=== PATIENT | male | born 2000 | race Caucasian/White ===

== ENCOUNTER 2024-12-23 08:58 | Emergency (ER) | payer BC, SELFPAY ==
--- NOTE | ~2024-12-23 | XR_ITS ---
AP and lateral views of the sacrum/coccyx CLINICAL HISTORY: Tailbone injury FINDINGS: No fracture or dislocation seen. Osseous alignment appears anatomic. Visualized hip joints are intact. SI joints are intact. Soft tissues are unremarkable. IMPRESSION: Unremarkable exam. Reviewed, dictated and finalized at [facility]. IMPRESSION: Unremarkable exam.
--- NOTE | 2024-12-23 09:05 | ED.BACK ---
HPI - Back Pain/Injury General Chief Complaint: Back Pain/Injury Stated Complaint: Fall Injury, lower back pain Time Seen by Provider: 12/23/24 09:06 Source: patient Mode of arrival: ambulatory Limitations: no limitations History of Present Illness HPI Narrative: Sebastián is a 24-year-old male patient presenting to the clinic today with complaints of tailbone pain early this morning. States last night he fell on a corner of a stair and injured his tailbone. Rates his pain 2/10 when standing but it increases to 7-8 out of 10 when moving. Has a lot of pain when laying down and sitting. Denies any blood in his urine or any difficulty urinating. Has not had a bowel movement since he injured the tailbone. Related Data Allergies Allergy/AdvReac Type Severity Reaction Status Date / Time cefdinir Allergy Unknown Vomiting Verified 12/23/24 09:12 Review of Systems Review of Systems: Pertinent positives per HPI. Patient denies any fever, chills, rash, headache, visual changes, dizziness, cough, shortness of breath, chest pain, palpitations, nausea, vomiting, diarrhea, constipation, abdominal pain, or any urinary issues. FOR[facility]LY [facility], [facility] Family History Family History Mother Family history of thyroid disease Family history of lupus erythematosus Grandparent Diabetes mellitus Hypertension Family history of cardiovascular disease Family history of congestive heart failure Father Hypertension Social History Social History Smoking status: Light tobacco smoker Second hand tobacco smoke exposure: No Alcohol intake: never Comments At the time of my signature, I reviewed and agree with the nursing past medical, surgical, social, and family history. There is no relevant family history pertinent to the patient complaint. Exam Narrative: General: Well-developed, well nourished, in no apparent distress Head: Normocephalic, atraumatic. Cardio: Regular rate and rhythm, s1 and s2 normal, no murmur appreciated. Resp: Clear to auscultation bilaterally, no rhonchi, rales, wheezing or rubs. Musculoskeletal: No deformity, no bruising or swelling noted to the tailbone,tender to palpation over the tailbone, grossly normal range of motion, muscle strength strong and equal in BLE. SLT negative, patellar reflexes 2/4 bilaterally, negative foot drop, normal gait and station Course Course Emergency Course: Portions of this record may have been created with voice recognition software. Level of Care: Express Care Visit Vital Signs Vital signs: Vital Signs Pulse Rate 93 12/23/24 09:13 Respiratory Rate 16 12/23/24 09:13 Blood Pressure 149/91 H 12/23/24 09:13 Pulse Oximetry 99 12/23/24 09:13 Oxygen Delivery Room Air 12/23/24 09:13 Pulse Rate 93 12/23/24 09:13 Respiratory Rate 16 12/23/24 09:13 Blood Pressure 149/91 H 12/23/24 09:13 Pulse Oximetry 99 12/23/24 09:13 Oxygen Delivery Room Air 12/23/24 09:13 Vital signs reviewed MDM - Back Pain/Injury MDM Narrative Medical decision making narrative: At the time of visit patient is resting comfortably on the exam table. Patient appears to be nontoxic. Diagnostics: X-ray of the sacrum/coccyx was completed. X-rays negative for any sign of fracture or or malalignment. Plan: I suspect patient has a coccyx contusion. Prescription for naproxen was sent to the pharmacy. Supportive measures were discussed with the patient and they voiced understanding discharge instructions and agrees to treatment plan. Return precautions reviewed Differential Diagnosis Differential diagnosis: Likely lumbar radiculopathy, sciatica and strain of lumbar region (Coccyx fracture, coccyx bruise, soft tissue injury) Imaging Data Radiologist's impression: ITS Impressions Sacrum and Coccyx X-Ray 12/23/24 09:36 IMPRESSION: Unremarkable exam. Discharge Plan Discharge Clinical Impression: Coccygeal contusion Qualifiers: Encounter type: initial encounter Qualified Code(s): S30.0XXA - Contusion of lower back and pelvis, initial encounter Patient Disposition: Home Condition: Stable Instructions: Antibiotic Form, Coccyx Injury (ED), Contusion in Adults (ED) Additional Instructions: X-rays negative for any sign of fracture or malalignment of the sacrum or the coccyx. Increase fluids and stay well hydrated May take stool softener daily as discussed Take naproxen as prescribed-may take Tylenol additionally as needed for pain May apply ice to the affected area 20 minutes at a time 20 minutes on/20 minutes off for the next 24-48 hours Recommend purchasing a donut cushion so you can set more comfortably Follow-up with your primary care doctor in 7-10 days if symptoms persist or sooner if they worsen Patient Language: Sami Prescriptions: New naproxen 500 mg tablet 500 mg PO BID PRN (Reason: pain) 7 Days Qty: 14 0RF Follow-up/Referrals: UNKNOWN,DOCTOR [Primary Care Provider] - Time of Disposition: 09:51 Quality NIHSS Nursing Documentation ED NIHSS nursing documentation: reviewed/agree
[2024-12-23 09:13] VITALS: BP 149/91; PULSE 93; RESP 16; O2SAT 99
== END 2024-12-23 10:00 | disposition home or self-care (01) ==
PROVIDERS: Emergency Provider Nurse Practitioner Family
DX: S30.0XXA Contusion of lower back and pelvis, initial encounter (principal); W10.9XXA Fall (on) (from) unspecified stairs and steps, initial encounter; F17.200 Nicotine dependence, unspecified, uncomplicated
CPT/HCPCS: 72220; 99203; G0463

== ENCOUNTER 2025-01-07 23:06 | Emergency (ER) | payer BC, SELFPAY ==
--- NOTE | ~2025-01-07 | XR_ITS ---
EXAMINATION: XR chest 2V Exam Date/Time: 01/07/2025 23:24 CDT HISTORY: chest pain LEFT SIDE Comparison: None. RESULT: Lines, tubes, and devices: None. Lungs and pleura: Clear. Cardiomediastinal silhouette: Normal. Other: No acute osseous or upper abdominal finding. IMPRESSION: No acute cardiopulmonary process. Reviewed, dictated and finalized at location [facility].
--- OUTSIDE RECORDS SUMMARY | 2025-01-07 23:08 | XMS_ITS | Encounter Summary ---
Author Organization [facility] Address [address] Attn: Epic Prelude ADT RENITA CABEZAS [id number] Care Team Providers Care Solar Project Manager Name Role Phone Arvin Call MD Primary Care Provide r Unavailable Encounter Details Date Type Department Care Team (Late st Contact Info) Description 2000 Inpatient Historical Silvia Santana Arvin Call MD NO ADDRESS ON FILE Single liveborn, born in hospital, delivered without mention of delivery (Primary Dx) Social History Tobacco Use Types Packs/Day Years Used Date Smoking Tobacco: Never Assessed Sex and Gender Information Value Date Recorded Sex Assigned at Not on file 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
--- OUTSIDE RECORDS SUMMARY | 2025-01-07 23:08 | XMS_ITS | Clinical Summary ---
Author Organization [facility] [address] Address [address] [place] [id number] Care Team Providers Care Beef Splitter Name Role Phone Elysia Byers MD Primary Care Provider [phone] Allergies Active Allergy Reactions Criticality Noted Date Comments Cefdinir Vomiting Low 09/26/2020 Medications cetirizine-pseu doephedrine ER (ZyrTEC-D) 5-120 mg per 12 hr tablet Take 1 tablet by mouth 2 (two) times a day Active SUMAtriptan (IMITREX) 100 mg tabletIndicatio ns:Migraine Take 1 tablet (100 mg total) by mouth once as needed for migraine Take 1 tablet (100 mg total) by mouth once as needed for migraine (headache) for up to 1 dose May repeat one time after 2 hours if needed. 9 tablet 3 12/08/2021 Active Active Problems Problem Noted Date Diagnosed Date Preventative health care 09/26/2020 Assessment & Plan (12/11/2021 2:49 PM CDT): utd on vaccinations aside from gardasil- recommended Due for labwork, ordered rtc 1 year for annual Assessment & Plan (09/26/2020 11:20 AM CDT): Will work on varicella vax, tdap, hpv info Advised he work on diet and exercise Fasting labwork at earliest convenience Migraine Immunizations Immunization Administration Dates Next Due Influenza, Unspecified 04/10/2020 Tdap 01/15/2021 Surgical History Surgery Date Site/Laterality Comments WISDOM TOOTH EXTRACTION Medical History Medical History Date Comments Migraine Family History Medical History Relation Name Comments Hypertension Father Lupus Mother Relation Name Status Comments Father Alive Mother Alive Social History Tobacco Use Types Packs/Day Years Used Date Smoking Tobacco: Some Days Cigars Vaping Smokeless Tobacco: Never AUDIT-C Answer Date Recorded Q1: How often do you have a drink containing alc ohol? 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 Gender Identity Not on file Sexual Orientation Not on file Obstetrics History Last Filed Vital Signs Vital Sign Reading Time Taken Comments Blood Pressure 124/82 12/08/2021 1:05 PM CDT Pulse 95 12/08/2021 1:05 PM CDT Temperature 36.7 C (98.1 F) 12/08/2021 1:05 PM CDT Respiratory Rate - - Oxygen Saturation 97% 12/08/2021 1:05 PM CDT Inhaled Oxygen Concentration - - Weight 101.6 kg (224 lb) 12/08/2021 1:05 PM CDT Height 186.7 cm (6' 1.5) 12/08/2021 1:05 PM CDT Body Mass Index 29.15 12/08/2021 1:05 PM CDT Plan of Treatment Not on file Insurance Codenvy OOS Codenvy OOS Care Teams Beef Splitter Relationship Specialty Start Date End Date Elysia Byers MD [address] [place] [id number] PCP - General Internal Medicine 09/09/20
--- OUTSIDE RECORDS SUMMARY | 2025-01-07 23:08 | XMS_ITS | Referral Summary ---
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
--- OUTSIDE RECORDS SUMMARY | 2025-01-07 23:08 | XMS_ITS | Encounter Summary ---
Author Organization [facility] Address 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
--- OUTSIDE RECORDS SUMMARY | 2025-01-07 23:08 | XMS_ITS | Clinical Summary ---
Author Organization [facility] Address [address] [place] [address] Care Team Providers Care Metalizing Machine Operator Automatic Name Role Phone Unavailable Primary Care Provider Unavailabl e Allergies Active Allergy Reactions Criticality Noted Date Comments Cefdinir Nausea and Vomiting High 01/03/2015 Medications cetirizine (ZyrTEC) 10 mg tablet Take 10 mg by mouth daily. Active acetaminophen (TYLENOL) 325 mg tablet Take 325 mg by mouth every 4 hours as needed. Active ibuprofen (MOTRIN) 200 mg tablet Take 200 mg by mouth every 6 hours as needed for Pain, Mild. Active Active Problems No known active problems Immunizations Immunization Administration Dates Next Due (ADACEL/BOOSTRIX)(10 YR UP) TDAP VACCINE, 0.5ML, IM 12/17/2011 (HAVRIX/VAQTA)(12 MO-18 YRS) HEPATITIS A VACCINE 0.5 ML PED/ADOL 2 DOSE, IM 02/13/2016,01/03/2015 07/05/2015 (INFANRIX)(6 WKS-6 YRS) DIPT HERIA, TETANUS TOXOIDS, AND ACCELLULAR PERTUSSIS VACCINE (DTAP), 0.5 ML IM 05/12/2005,10/26/2001,2000,08/12,2000 (IPOL)(6 WKS AND UP) POLIOVI ANDREW VACCINE, INACTIVATED (IPV), 3 DOSE, SUBCUT OR IM 05/12/2005,10/26/2001,2000,05/13 (M-M-R II/PRIORIX)(12 MO UP) MEASLES, MUMPS AND RUBELLA VIRUS VACCINE, 0.5 ML IM/SUBCUT 05/12/2005,08/03/2001 (TRUMENBA)(10-25 YR) MENINGO COCCAL RECOMBIANT LIPOPROTEIN VACCINE, SEROGROUP B MENB-FHBP, 2-3 DOSE, IM 03/09/2018 (VARIVAX)(12 MOS UP)VARICELL A VIRUS VACCINE (PF) 0.5 ML, SUB CUT 12/17/2011,05/02/2002 HIB, Unspecified Formulation 08/03/2001, 2000,2000,07/11 Hepatitis B Vaccine 02/02/2001,2000,1999 Meningococcal A Conjugate Vaccine IM 03/09/2018, 01/03/2015 PREVNAR (PCV13) pneumococcal 13-valent conjugate Vaccine 10/26/2001,02/02/2001,2000 Family History Medical History Relation Name Comments Healthy Father Other Mother Relation Name Status Comments Father Mother Social History Tobacco Use Types Packs/Day Years Used Date Smoking Tobacco: Never Alcohol Use Standard Drinks/Week Comments No 0 (1 standard drink = 0.6 oz pur e alcohol) Sex and Gender Information Value Date Recorded Sex Assigned at Not on file 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 Gender Identity Not on file Sexual Orientation Not on file Last Filed Vital Signs Vital Sign Reading Time Taken Comments Blood Pressure 110/74 03/09/2018 3:20 PM CDT Pulse 72 02/15/2017 11:01 AM CDT Temperature 36.8 C (98.2 F) 07/19/2016 11:00 AM DWARF TREE GROWER Respiratory Rate - - Oxygen Saturation 99% 10/11/2016 11:02 AM CDT Inhaled Oxygen Concentration - - Weight 79.6 kg (175 lb 6.4 oz) 03/09/2018 3:20 P M CDT Height 184.2 cm (6' 0.52) 03/09/2018 3:20 PM CD T Body Mass Index 23.45 03/09/2018 3:20 PM CDT Plan of Treatment Health Maintenance Due Date Last Done Comments HPV VACCINES (1 - Male 3-dos e series) 2015 DTAP/TDAP/TD VACCINES (7 - T d or Tdap) 12/16/2021 12/17/2011, 05/12/2005, 10/26/2001, Additional history exists INFLUENZA VACCINE (#1) 2024 HEPATITIS B VACCINES Completed 02/02/2001, 2000, 2000
--- NOTE | 2025-01-07 23:18 | ECG_ITS ---
Test Date: 2025-01-07 23:21:45 Measurements Intervals [place] Rate: 103 P: 44 AR: 156 QRS: 42 QRSD: 88 T: -5 QT: 315 QTc: 414 Interpretive Statements SINUS TACHYCARDIA NONSPECIFIC T-WAVE ABNORMALITY ABNORMAL RHYTHM ECG No previous ECG available for comparison Electronically Signed On 01-08-2025 15:34:58 CDT by Kimani Monroe
[2025-01-07 23:20] VITALS: BP 184/126; PULSE 102; RESP 18; TEMP 36.5; O2SAT 99
[2025-01-08 00:30] VITALS: BP 152/95; PULSE 94; RESP 16; O2SAT 99
[2025-01-08 01:21] LABS: Hematocrit 47.3 % (42.0-52.0); Hemoglobin 16.0 g/dL (14.0-18.0); Immature Granulocyte Percent A 0.5 % (0-0.5); Lymphocytes Absolute Auto 2.18 K/mm3 (0.9-3.2); Mean Corpuscular HGB Conc 33.8 g/dl (32-36); Mean Corpuscular Hemoglobin 30.8 pg (26-34); Mean Corpuscular Volume 91.1 fl (80-100); Nucleated Red Blood Cells Absolute Auto 0.000 K/mm3 (0.0-0.012); Nucleated Red Blood Cells Perc 0.0 % (0.0-0.2); Platelet Count Result 252 k/mm3 (150-375); Red Blood Count 5.19 M/mm3 (4.6-6.20); White Blood Count 9.8 K/mm3 (4.5-10.0)
[2025-01-08 01:26] LABS: Alanine Aminotransferase 58 U/L (6-50); Albumin Level 4.7 g/dL (3.5-5.1); Alkaline Phosphatase 54 U/L (38-126); Anion Gap 9 mmol/L (4-12); Aspartate Amino Transferase 56 U/L (17-59); Bilirubin,Total 0.5 mg/dL (0.2-1.3); Blood Urea Nitrogen 15 mg/dL (9-20); Calcium 9.6 mg/dL (8.4-10.2); Carbon Dioxide 28 mmol/L (22-30); Chloride 103 mmol/L (98-107); Estimated CRCL calculation 159 ml/min; Estimated Glomerular Filt Rate > 60; Glucose 110 mg/dL (65-110); Lipase 73 U/L (23-300); Potassium 3.7 mmol/L (3.4-5.0); Sodium 140 mmol/L (137-145); Total Protein 8.1 g/dL (6.3-8.2)
[2025-01-08 01:32] VITALS: O2SAT 99
[2025-01-08 01:38] LABS: INR 1.1; Partial Thromboplastin Time 30.8 Seconds (22.3-36.8); Prothrombin Time 14.0 Seconds (11.1-14.7); Troponin I < 0.012 ng/mL (0.000-0.034)
--- NOTE | 2025-01-08 02:30 | ED_ITS ---
HPI - Chest Pain General Chief Complaint: Chest Pain Stated Complaint: Left chest pain Time Seen by Provider: 01/08/25 02:01 Source: patient and family Mode of arrival: ambulatory Limitations: no limitations History of Present Illness HPI narrative: Patient presents with report of acute onset left-sided chest pain. He states he was taking a deep breath when he experienced sharp pain. That pain went away but then he seemed to have pain that radiated to his left shoulder. He took ibuprofen and the pain was mostly gone after this. However, he had previously taken an EMT class and thought he should get it checked out. Does not have a primary care physician. Does not have a diagnosis of hypertension but does state that at multiple clinic visits his blood pressure has been elevated and this has been ever since he experienced a frontal sinus fracture. He did have some shortness of breath earlier but not currently. Denies any fevers, chills, cough, heavy lifting. Cardiac risk factors HTN: No diagnosis yet HLD: No DM: No Obese:Yes Smoker: Quit vaping >3 mos ago (does still use Zin pouches) Personal history MN/TIA/CVA: No Fam Hx MN in first degree relative <65yo: No Related Data Allergies Allergy/AdvReac Type Severity Reaction Status Date / Time cefdinir Allergy Unknown Vomiting Verified 01/08/25 00:31 [facility] Past Medical History Medical History (Updated 01/09/25 @ 09:03 by Beth Wolff MD) Frontal sinus fracture Family History Family History Mother Family history of thyroid disease Family history of lupus erythematosus Grandparent Diabetes mellitus Hypertension Family history of cardiovascular disease Family history of congestive heart failure Father Hypertension Social History Social History Smokeless tobacco user: chewing tobacco Second hand tobacco smoke exposure: No Additional smoking assessment comments: Previously vaped (quit >3 mos ago); now Zin pouches Alcohol intake: never Additional occupation/education comments: 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 HEAD: Normocephalic, atraumatic. EYES: Non injected, non icteric ENT: Nares clear, no rhinorrhea or epistaxis. Gross auditory acuity intact. NECK: Supple. No meningismus. CHEST: Speaking in full sentences. No respiratory distress. Lungs clear to auscultation bilaterally without wheezes crackles, areas of focal consolidation, or absent breath sounds. Pain is not reproducible on palpation HEART: Regular rate and rhythm. . ABDOMEN: Soft, nondistended. EXTREMITIES: Normal range of motion. No lower extremity edema. SKIN: Warm, dry, no rash. NEURO: No focal deficits. Alert and oriented. Answering questions. Following commands. Normal speech without aphasia or dysarthria. PSYCH: Normal mood and affect. Course Vital Signs Vital signs: Vital Signs Temperature 97.7 F 01/07/25 23:20 Pulse Rate 102 H 01/07/25 23:20 Respiratory Rate 18 01/07/25 23:20 Blood Pressure 184/126 H 01/07/25 23:20 Pulse Oximetry 99 01/07/25 23:20 Oxygen Delivery Room Air 01/07/25 23:20 Temperature 97.7 F 01/07/25 23:20 Pulse Rate 76 01/08/25 05:23 Respiratory Rate 15 01/08/25 05:23 Blood Pressure 152/82 H 01/08/25 05:23 Pulse Oximetry 95 01/08/25 05:23 Oxygen Delivery Room Air 01/08/25 01:32 MDM - Chest Pain MDM Narrative Medical decision making narrative: Pleasant 24 year old male presents with concern for left-sided chest pain that he developed after he took a deep breath and experienced a sharp pain in this area. The pain went away but then seemed to radiate/settle in his left shoulder. It was nearly gone after taking ibuprofen but he still decided to come to the emergency department to be checked out. In the emergency department he is afebrile with vital signs notable for tachycardia and hypertension. Mild ALT elevation. D-dimer normal. Will not pursue further w/u for PE. HEART SCORE History 2 highly suspicious 1 moderately suspicious 0 slightly suspicious History score [address] depression/elevation not due to LBBB, LVH, or digoxin [address] depression but LBBB, LVH, nonspecific repolarization changes 0 normal ECG score 0 Age 2 >/= 65 1 45-64 0 <45 Age score 0 Risk factors (HTN, hypercholesterolemia, DM, obesity with BMI >30, current smoker or cessation </=3mo), positive fam hx with parent or sibling with CVD before age 65, atherosclerotic disease (prior MN, PCI/CABG, CVA/TIA, or peripheral arterial disease) 2 >/= 3 risk factors or history of atherosclerotic dz 1 - 1-2 risk factors 0 no known risk factors Risk factor score 1 Initial Troponin 2 >3 times normal limit 1 1-3 times normal limit 0 less than or equal to normal limit Troponin score 0 Total HEART Score 1 Repeat troponin normal. Given that patient states that he has had recurrent elevated blood pressure readings at various times when it is been checked and including multiple times while in the emergency department, shared decision making was performed in regards to initiating antihypertensive medication. Patient is amenable. Advised follow-up with primary care physician and provided contact information for 1. Also provided prescriptions for analgesia OTC meds. Stable for discharge. Differential Diagnosis Differential diagnosis: Likely pneumothorax (including considering tension/spontenaoue), stable angina, unstable angina pectoris, atypical chest pain, st elevation myocardial infarction, costochondritis, chest pain and biliary colic Lab Data Attestation: I reviewed the patient's lab results. 01/08/25 01:11 01/08/25 01:11 Labs: Lab Results 01/08/25 01/08/25 Range/Units 01:11 04:17 WBC 9.8 (4.5-10.0) K/mm3 RBC 5.19 (4.6-6.20) M/mm3 Hgb 16.0 (14.0-18.0) g/dL Hct 47.3 (42.0-52.0) % MCV 91.1 (80-100) fl MCH 30.8 (26-34) pg MCHC 33.8 (32-36) g/dl RDW 12.0 (11.5-14.5) % Plt Count 252 (150-375) k/mm3 MPV 10.5 H (7.4-10.4) fl Immature Gran % (Auto) 0.5 (0-0.5) % Neut % (Auto) 66.3 (45.5-73.1) % Lymph % (Auto) 22.2 (18.3-44.2) % Brooks % (Auto) 8.5 (2.6-8.5) % Eos % (Auto) 1.8 (0-4.4) % Baso % (Auto) 0.7 (0.2-1.2) % Lymph # (Auto) 2.18 (0.9-3.2) K/mm3 Brooks # (Auto) 0.8 H (0.1-0.6) K/mm3 Eos # (Auto) 0.2 (0-0.3) K/mm3 Baso # (Auto) 0.1 (0.0-0.1) K/mm3 Abs Immat Gran (auto) 0.05 H (0.00-0.031) K/mm3 Absolute Neuts (auto) 6.5 (1.3-6.7) K/mm3 Absolute Nucleated RBC 0.000 (0.0-0.012) K/mm3 Nucleated RBC % 0.0 (0.0-0.2) % PT 14.0 (11.1-14.7) Seconds INR 1.1 APTT 30.8 (22.3-36.8) Seconds D-Dimer < 0.27 (<0.48) ug/mL Sodium 140 (137-145) mmol/L Potassium 3.7 (3.4-5.0) mmol/L Chloride 103 (98-107) mmol/L Carbon Dioxide 28 (22-30) mmol/L Anion Gap 9 (4-12) mmol/L BUN 15 (9-20) mg/dL Creatinine 0.81 (0.7-1.3) mg/dL Estim Creat Clear Calc 159 ml/min Estimated GFR > 60 (59 - ) Glucose 110 (65-110) mg/dL Calcium 9.6 (8.4-10.2) mg/dL Total Bilirubin 0.5 (0.2-1.3) mg/dL AST 56 (17-59) U/L ALT 58 H (6-50) U/L Alkaline Phosphatase 54 (38-126) U/L Troponin I < 0.012 0.014 (0.000-0.034) ng/mL Total Protein 8.1 (6.3-8.2) g/dL Albumin 4.7 (3.5-5.1) g/dL Lipase 73 (23-300) U/L Imaging Data Radiologist's impression: IMPRESSION: No acute cardiopulmonary process. ECG Data EKG #1: Attestation: I personally reviewed and interpreted this ECG as follows: ECG completion date: 01/07/25 ECG completion time: 23:21 Interpretation: Sinus tachycardia at a rate of 103 beats per minute. HI interval 156. QRS 88. QT/QTC 315/375. Good R-wave progression across the precordial leads. T-wave inversion in 3 and AVF. Upright in contiguous inferior lead 2. No other T-wave inversions. EKG #2: Attestation: I personally reviewed and interpreted this ECG as follows: ECG completion date: 01/08/25 ECG completion time: 04:12 Interpretation: Sinus rhythm at a rate of 72 beats per minute. There is R to R variation consistent with sinus arrhythmia and usually due to respiratory variation and otherwise benign finding. HI interval 144. QRS 91. QT/QTC 361/386. Good R- wave progression across the precordial leads. T-wave inversion in III. Discharge Plan Discharge Clinical Impression: Elevated ALT measurement, Chest pain, Elevated BP without diagnosis of hypertension Patient Disposition: Home Condition: Stable Instructions: Antibiotic Form, Chest Pain (ED), Hypertension (ED), Noncardiac Chest Pain (ED) Additional Instructions: As we discussed, the cause of your pain is unclear but not felt to be cardiac given your workup which included EKG (x2), troponin/cardiac enzymes (x2), chest xray, etc. It is recommended that you follow-up with a primary care physician, for this as well as your high blood pressure. Because you stated you have had multiple elevated readings at other healthcare appointments, will start you on a blood pressure medication given the concern for hypertension. Name/referrals for both a primary care physician and clinical services director are listed below. Return to the emergency department with any new or worsening symptoms Acetaminophen/Tylenol (maximum 4000 mg per day) is safe to take with NSAIDs (ibuprofen/Motrin) for pain relief. Patient Language: Czech Prescriptions: New acetaminophen 500 mg capsule 1,000 mg PO Q6H PRN (Reason: pain) Qty: 30 0RF ibuprofen 600 mg tablet 600 mg PO TID PRN (Reason: pain) Qty: 30 0RF hydrochlorothiazide 12.5 mg tablet 12.5 mg PO DAILY 30 Days Qty: 30 0RF No Action naproxen 500 mg tablet 500 mg PO BID PRN (Reason: pain) 7 Days Qty: 14 0RF Follow-up/Referrals: Juan Hart MD [Physician] - (cardiology) Motwani,Reinaldo K., MD [Physician] - (primary care) UNKNOWN,DOCTOR [Primary Care Provider] - Stand Alone Forms: Work/School Release IP Time of Disposition: 05:11
--- OUTSIDE RECORDS SUMMARY | 2025-01-08 02:39 | XMS_ITS | Clinical Summary ---
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
--- OUTSIDE RECORDS SUMMARY | 2025-01-08 02:39 | XMS_ITS | Encounter Summary ---
Author Organization [facility] Address 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
--- OUTSIDE RECORDS SUMMARY | 2025-01-08 02:39 | XMS_ITS | Referral Summary ---
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
--- OUTSIDE RECORDS SUMMARY | 2025-01-08 02:39 | XMS_ITS | Clinical Summary ---
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
--- OUTSIDE RECORDS SUMMARY | 2025-01-08 02:39 | XMS_ITS | Encounter Summary ---
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
[2025-01-08 03:09] VITALS: BP 154/99; PULSE 81; RESP 19; O2SAT 97
--- NOTE | 2025-01-08 04:11 | ECG_ITS ---
Test Date: 2025-01-08 04:12:20 Measurements Intervals [place] Rate: 72 P: 42 GA: 144 QRS: 34 QRSD: 91 T: -1 QT: 361 QTc: 397 Interpretive Statements SINUS RHYTHM WITH SINUS ARRHYTHMIA Compared to ECG 01/07/2025 23:21:45 Sinus tachycardia no longer present T-wave abnormality no longer present Electronically Signed On 01-08-2025 17:59:01 CDT by Kimani Monroe
[2025-01-08 04:58] LABS: Troponin I 0.014 ng/mL (0.000-0.034)
[2025-01-08 05:23] VITALS: BP 152/82; PULSE 76; RESP 15; O2SAT 95
== END 2025-01-08 05:24 | disposition home or self-care (01) ==
PROVIDERS: Student in an Organized Health Care Education/Training Program; Emergency Provider Student in an Organized Health Care Education/Training Program
DX: R74.01 Elevation of levels of liver transaminase levels (principal); R07.9 Chest pain, unspecified; R03.0 Elevated blood-pressure reading, without diagnosis of hypertension
CPT/HCPCS: 36415; 71046; 80053; 83690; 84484; 85025; 85380; 85610; 85730; 93005; 99284

== ENCOUNTER 2025-07-05 09:30 | Emergency (ER) | payer BC, SELFPAY ==
[2025-07-05 09:41] VITALS: BP 145/90; PULSE 89; RESP 16; TEMP 36.4; O2SAT 99
--- NOTE | 2025-07-05 10:30 | ED_ITS ---
HPI - URI/Sore Throat General Chief Complaint: Upper Respiratory Infection Stated Complaint: Sore throat Time Seen by Provider: 07/05/25 10:30 Source: patient, RN notes reviewed and old records reviewed Mode of arrival: ambulatory Limitations: no limitations History of Present Illness HPI Narrative: 25-year-old male presents to the [facility] with a sore throat x1 day. No treatment prior to arrival Related Data Allergies Allergy/AdvReac Type Severity Reaction Status Date / Time cefdinir Allergy Unknown Vomiting Verified 01/08/25 00:31 Review of Systems Review of Systems: All systems reviewed & are unremarkable except as noted in HPI and below Constitutional: Constitutional: Reports no additional constitutional complaints ENT: Reports as per HPI and Reports sore throat Cardiovascular: Cardiovascular: Reports no additional cardiovascular complaints, Denies chest pain and Denies dyspnea Respiratory: Respiratory: Reports no additional respiratory complaints, Denies chest congestion, Denies cough and Denies dyspnea Musculoskeletal: Musculoskeletal: Reports no additional musculoskeletal complaints Integumentary/Breasts: Skin/Breast: Reports system reviewed and no additional complaints, except as docu PMFSH Past Medical History Medical History Frontal sinus fracture Family History Family History Mother Family history of thyroid disease Family history of lupus erythematosus Grandparent Diabetes mellitus Hypertension Family history of cardiovascular disease Family history of congestive heart failure Father Hypertension Social History Social History Smokeless tobacco user: chewing tobacco Second hand tobacco smoke exposure: No Additional smoking assessment comments: Previously vaped (quit >3 mos ago); now Zin pouches Alcohol intake: never Additional occupation/education comments: 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 There is no relevant family history pertinent to the patient complaint. Exam Const: General: cooperative, healthy appearing, comfortable, no acute distress, well developed, alert and well nourished Nutritional Appearance: well nourished Orientation/consciousness: patient oriented x3 Limitations: no limitations HENMT: Head: normal to inspection Ears: hearing grossly normal bilaterally, external ears normal, TM's normal bilaterally, EAC's normal, mastoids normal and no periauricular adenopathy Mouth: Yes Normal oral and palatal mucosa present, Yes lip normal, Yes tongue normal and Yes moist mucous membranes Thr oat: posterior oropharynx normal, uvula midline and no uvular edema Eyes: General: appearance normal, both eyes and all related structures Alignment and Position: alignment normal Neck: Neck: normal visual inspection, full ROM, no lymphadenopathy and no meningeal signs Chest: Chest palpation & inspection: normal inspection of the chest Resp: Effort & Inspection: normal respiratory effort and able to speak in complete sentences Auscultation: clear to auscultation bilaterally, no crackles, no rales, no rhonchi and no wheezes Cardio: Rate: regular rate Skin: General skin exam: normal color and no rashes or lesions noted Neuro: General: patient oriented x3, gait normal, moves all extremities and no meningeal signs Cognition (Neuro): normal cognition Speech: normal speech Gait exam (Neuro): Normal gait present Extrem: General: normal to inspection, full ROM, capillary refill normal and normal gait Psych: Appearance: grossly normal and well kempt Mental Status: mental status grossly normal Speech and movement: Normal speech and movement present and Clear speech present Affect: normal affect Attitude: cooperative Course Course Level of Care: Express Care Visit Vital Signs Vital signs: Vital Signs Temperature 97.5 F L 07/05/25 09:41 Pulse Rate 89 07/05/25 09:41 Respiratory Rate 16 07/05/25 09:41 Blood Pressure 145/90 H 07/05/25 09:41 Pulse Oximetry 99 07/05/25 09:41 Temperature 97.5 F L 07/05/25 09:41 Pulse Rate 89 07/05/25 09:41 Respiratory Rate 16 07/05/25 09:41 Blood Pressure 145/90 H 07/05/25 09:41 Pulse Oximetry 99 07/05/25 09:41 reviewed MDM MDM Narrative Medical decision making narrative: Patient sitting in exam room. Patient is nontoxic, vitals stable. Patient in no acute distress. Patient 1 day of symptoms. Patient is appropriate for outpatient treatment of strep throat Discharge instructions reviewed with patient, as well as provided in writing per nursing staff. The instructions also include specific and strict return/GO TO THE ER as well as f/u information. All questions have been answered, and the patient deny any further questions with discharge and discharge plan. Some parts of this dictation were generated by voice recognition software and may contain typographical and/or grammatical inaccuracies. Differential Diagnosis Differential Diagnosis: Differential diagnostic considerations for upper respiratory infection include upper respiratory infection, croup, otitis media, sinusitis, viral infection, bronchitis, influenza, pharyngitis, strep, uvulitis.? Lab Data Labs: Lab Results 07/05/25 Range/Units 10:33 POC Grp A Strep Screen Positive (Negative) Reviewed Discharge Plan Discharge Clinical Impression: Strep pharyngitis Patient Disposition: Home Condition: Stable Instructions: Antibiotic Form, Strep Throat (ED) Additional Instructions: After 24-48 hours on antibiotics, Throw the toothbrush away, start using a new one. Please be sure to wash bed linens especially pillow cases. Repeat once you finish the antibiotics. Do not share drinks. Take Motrin alternating with Tylenol for pain and fever alternating every 4 hours. Increase fluids, avoid caffeine. Give plenty of water, juice, Gatorade, Pedialyte, ice pops in Jell-O Follow up with Primary provider if not getting better this week For new or worsening symptoms go directly to the emergency room Patient Language: Latvian Prescriptions: New amoxicillin 500 mg tablet 500 mg PO Q12H Qty: 20 0RF No Action acetaminophen 500 mg capsule 1,000 mg PO Q6H PRN (Reason: pain) Qty: 30 0RF ibuprofen 600 mg tablet 600 mg PO TID PRN (Reason: pain) Qty: 30 0RF Follow-up/Referrals: PHYSICIAN,THERMAL CUTTER HELPER [Primary Care Provider, Internal Medicine] Stand Alone Forms: Work/School Release IP Time of Disposition: 10:36
[2025-07-05 10:35] LABS: EDSTREPNEGPOS1 Positive (Negative)
== END 2025-07-05 10:44 | disposition home or self-care (01) ==
PROVIDERS: Emergency Provider Nurse Practitioner
DX: J02.0 Streptococcal pharyngitis (principal)
CPT/HCPCS: 87880; 99213; G0463